=== PATIENT | female | born 1970 | race Caucasian/White ===

== ENCOUNTER 2024-08-30 08:41 | Outpatient (CLI) | payer SELFPAY | END 2024-08-30 08:42 | disposition home or self-care (01) | PROVIDERS: PCP Obstetrics & Gynecology; Visit Provider Family Medicine | DX: R07.81 Pleurodynia (principal) | CPT/HCPCS: 80053 ==

== ENCOUNTER 2024-08-30 09:39 | Inpatient (IN) | payer OTHER, SELFPAY ==
[2024-08-30] VITALS (25 sets, daily range): BP systolic 111–136; BP diastolic 60–79; PULSE 108–135; RESP 18–20; TEMP 36.8–38.8; O2SAT 91–97; BMI 21.6; BMI 22.1
--- NOTE | 2024-08-30 10:37 | CRLHL7_ITS ---
For Patients: As a result of the Century Cures Act, medical imaging exams and procedure reports are released immediately into your electronic medical record. You may view this report before your referring provider. If you have questions, please contact your health care provider. Indication: ABNORMAL CHEST XRAY, SHORTNESS OF BREATH, PAIN IN RIGHT SIDE OF CHEST AND BACK, PNEUMONIA Technique: CT chest without IV contrast Comparison: Same day chest radiograph Findings: No thyroid nodules. No pathologically enlarged lymph nodes throughout the thorax. The heart is normal in size. No significant pericardial effusion. The thoracic aorta and pulmonary artery are within normal limits in diameter. Large, likely loculated right-sided pleural effusion with adjacent compressive atelectatic changes of the right lung with near complete atelectasis of the right lower lobe and right middle lobes. Trace dependent and basilar linear atelectasis/scarring seen in the left lung. Solid 3 millimeter subpleural nodule in the left lower lobe, likely benign. The airways are clear. The visualized upper abdomen is unremarkable. The soft tissues and osseous structures are unremarkable. Impression: 1. Large, likely loculated right-sided pleural effusion with adjacent compressive atelectatic changes of the right lung. A superimposed infectious/inflammatory process in the atelectatic lung can not be excluded in the appropriate clinical context. 2. Solid 3 millimeter subpleural nodule in the left lower lobe, likely benign. If patient is at high risk for developing lung malignancy recommend repeat CT chest in 1 year. Please note that all CT scans at this facility use dose modulation, iterative reconstruction, and/or weight-based dosing when appropriate to reduce radiation dose to as low as reasonably achievable. Dictated by Agapito Mathews MD @ 08/30/2024 11:37:36 AM (Electronically Signed)
--- NOTE | 2024-08-30 10:56 | ED.GENADULT ---
HPI - General Adult General Chief complaint: Shortness of Breath/Dyspnea Stated complaint: Fluid in RT lung sent from clinic Time Seen by Provider: 08/30/24 09:41 History of Present Illness HPI narrative: This 53-year-old female comes in from clinic where was noted on x-ray that she has a large effusion in her right lung. She states that she began to have some pain in her ribs about a week ago. She went to a chiropractor on a couple different visits and was told that this was costal chondritis or pleuritic pain. She was prescribed meloxicam. Her pain is since worsened and today she arrives with tachycardia with a heart rate around 130 beats per minute. She also has a fever at 101? F. labs were acquired in her clinic visit and show a white count around 22,000. The patient is sent here for further evaluation treatment. Prior to this she has been in good health. Related Data Home Medications ?Medication ?Instructions ?Recorded ?Confirmed meloxicam 15 mg tablet 15 mg PO DAILY 08/30/24 08/30/24 Allergies Allergy/AdvReac Type Severity Reaction Status Date / Time No Known Drug Allergies Allergy Verified 08/30/24 08:06 Review of Systems Status of ROS: Reports: 10 or more systems reviewed and unremarkable except as noted in History and below Narrative: Constitutional: No weight gain or loss. Eyes: No discharge. No vision changes. HENT: No congestion, no sore throat, no ear pain. Cardiovascular: No palpitations. Respiratory: No shortness of breath, no wheezes. Occasional cough. Gastrointestinal: No abdominal pain, no vomiting, no diarrhea. Genitourinary: No dysuria, no hematuria. Musculoskeletal: Normal range of motion. Skin: No rashes, no pruritis. Neurological: No dizziness, weakness, sensory change, speech change. Endo/Heme/Allergies: No bruising or bleeding. No polydipsia. Pysch: no suicidality, no anxiety, no insomnia. All other systems reviewed and are negative. [facility] Medical History (Updated 08/30/24 @ 13:27 by Kobe Timmons MD) History of cervical dysplasia ?Z87.410 - Personal history of cervical dysplasia (ICD-10) History of gestational diabetes ?Z86.32 - Personal history of gestational diabetes (ICD-10) Surgical History (Updated 08/29/24 @ 16:31 by Lexi Trimble) History of tonsillectomy ?Z90.89 - Acquired absence of other organs (ICD-10) History of vaginal delivery History of section (07/09/06) ?Z98.891 - History of uterine scar from previous surgery (ICD-10) Family History (Updated 08/29/24 @ 16:31 by Lexi Trimble) Mother High cholesterol Breast cancer Alcohol dependence Father Prostate cancer Social History Smoking Status: Never smoker Do you use any of these nicotine containing products: None Second hand tobacco smoke exposure: No How often do you have a drink containing alcohol: never How often do you have six or more drinks on one occasion: Never AUDIT-C Alcohol total score: 0 Non-prescribed substance use: denies use service: No Exam Narrative: Exam Narrative: Constitutional: Well-developed, well-nourished, no acute distress. HEENT: Normocephalic, atraumatic. Neck: Normal range of motion. Nontender. Supple. Heart: Regular. No murmurs. Tachycardia. Intact distal pulses. Lungs: Absent lung sounds in the right lower lung. No use of accessory muscles for breathing. Abdomen: Normal bowel sounds. Nontender. No rebound tenderness. Genitalia: Deferred. Back: No midline tenderness. Normal range of motion. Extremities: Normal range of motion. No injury. Skin: Intact. No rash. Warm. No erythema or pallor. Neurologic: No altered sensation. No weakness. Alert and oriented. Psychiatric: No suicidality. No anxiety or depression. No insomnia. Nursing notes and vitals signs are reviewed. Const: Vital Signs, click to edit/add: Vital Signs - 24 hr 08/30/24 09:55 08/30/24 12:16 Temperature 101.2 F H 99.6 F Pulse Rate [Pulse Oximeter] 128 H Respiratory Rate 20 Blood Pressure [Ri ght Upper Arm] 136/79 Pulse Oximetry 96 Oxygen Delivery Me thod Room Air Course Vital Signs Vital signs: Initial Vital Signs Respiratory Effort Normal 08/30/24 09:43 Respiratory Depth Normal 08/30/24 09:43 Respiratory Pattern Normal 08/30/24 09:43 Vital Signs Temperature 101.2 F H 08/30/24 09:55 Pulse Rate 128 H 08/30/24 09:55 Respiratory Rate 20 08/30/24 09:55 Blood Pressure 136/79 08/30/24 09:55 Pulse Oximetry 96 08/30/24 09:55 Oxygen Delivery Method Room Air 08/30/24 09:55 Temperature 99.6 F 08/30/24 12:16 Pulse Rate 128 H 08/30/24 09:55 Respiratory Rate 20 08/30/24 09:55 Blood Pressure 136/79 08/30/24 09:55 Pulse Oximetry 96 08/30/24 09:55 Oxygen Delivery Method Room Air 08/30/24 09:55 Medications Administered Medications: Discontinued Medications Generic Name Dose Route Start Last Admin Trade Name Gonzalo PRN Reason Stop Dose Admin Acetaminophen 1,000 mg 08/30/24 10:37 08/30/24 11:24 Acetaminophen 500 Mg Tablet PO 08/30/24 10:38 1,000 mg ONCE ONE Administration Hydromorphone HCl 0.5 mg 08/30/24 12:15 08/30/24 13:12 Hydromorphone 0.5 Mg/0.5 Ml Inj IVP 08/30/24 12:16 0.5 mg ONCE ONE Administration Sodium Chloride 500 mls @ 500 mls/hr 08/30/24 10:37 08/30/24 11:24 0.9 % Sodium Chloride 500 Ml IV 08/30/24 11:36 500 mls/hr .Q1H ONE Administration Piperacillin Sod/Tazobactam 100 mls @ 200 mls/hr 08/30/24 10:37 08/30/24 11:24 Sod 3.375 gm/ Sodium Chloride IVPB 08/30/24 10:38 200 mls/hr ONCE ONE Administration Medical Decision Making [facility] Narrative Medical decision making narrative: This patient was sent here from clinic after discovery of a right-sided pleural effusion. The patient has been having symptoms for about a week and did not know that she had an ammonia. The labs were acquired at the clinic and showed a white count of around 22,000. An EKG done there showed sinus tachycardia without any ST or T-wave abnormalities. The patient arrives here with heart rate around 130 beats per minute but is not using accessory muscles for breathing and otherwise has reassuring vital signs. She did have a temperature of a 101.2? F. The patient received Tylenol orally. An IV was established where labs are acquired including blood culture and lactate. Her lactate returned normal at 1.2. After the blood cultures obtained the patient received a dose of Zosyn. CT scan of the chest was obtained and shows no obvious empyema or other findings beyond the large effusion in the right lung. This patient's symptoms are likely all related to a pneumonia. I did speak with the hospitalist on-call who wanted me to also speak with the surgeon on-call in case her was in need for thoracentesis. I did speak with Dr. Avilez in this regard. Dr. Barone accepts this patient for ongoing management. Lab Data Labs: Lab Results 08/30/24 Range/Units 10:58 Lactate 1.2 (0.5-1.9) mmol/L Imaging Data CT scan - chest: Radiologist's impression: 1. Large, likely loculated right-sided pleural effusion with adjacent compressive atelectatic changes of the right lung. A superimposed infectious/inflammatory process in the atelectatic lung can not be excluded in the appropriate clinical context. 2. Solid 3 millimeter subpleural nodule in the left lower lobe, likely benign. If patient is at high risk for developing lung malignancy recommend repeat CT chest in 1 year. Discharge Plan Discharge Clinical Impression: Community acquired pneumonia, Rib pain on right side Patient Disposition: Admitted As Observation Condition: Unchanged Prescriptions: No Action meloxicam 15 mg tablet 15 mg PO DAILY Follow Up/Referrals: Rachel Hernandez MD [Primary Care Provider] -
[2024-08-30 11:01] LABS: Lactate* 1.2 mmol/L (0.5-1.9)
[2024-08-30] MEDS: PIPERACILLIN/TAZOBACTAM 3.375 GM in 0.9 % SODIUM CHLORIDE Mini-bag 100 ML IVPB ×3 (11:24→22:36)
[2024-08-30] MEDS: 0.9 % SODIUM CHLORIDE 500 ML 500 ML IV (11:24)
[2024-08-30] MEDS: ACETAMINOPHEN 500 MG TABLET 1000 MG PO (11:24)
[2024-08-30] MEDS: HYDROmorphone 0.5 mg/0.5 ml inj IVP (13:12)
--- NOTE | 2024-08-30 14:53 | CRLHL7_ITS ---
For Patients: As a result of the Cures Act, medical imaging exams and procedure reports are released immediately into your electronic medical record. You may view this report before your referring provider. If you have questions, please contact your health care provider. Indication: Post thoracentesis Technique: AP view of the chest. Comparison: 08/30/2024. Findings: Normal cardiomediastinal silhouette. Slight interval decrease in now moderate right pleural effusion without visualized pneumothorax. Right basilar opacity. Impression: Slight interval decrease in now moderate right pleural effusion without visualized pneumothorax. Dictated by Jose Cruz Dasilva MD @ 08/30/2024 6:27:43 PM (Electronically Signed)
[2024-08-30 17:11] LABS: HCG Qualitative Serum* Negative (Negative)
[2024-08-30 17:17] LABS: Lipase* 78 U/L (23-300)
--- NOTE | 2024-08-30 18:13 | P.IMHP_ITS ---
Hospitalist- H&P: HPI History of Present Illness Date Seen: 08/30/24 Chief complaint: Fluid in RT lung sent from clinic Narrative: Raysa Stanley is a 53 year old female admitted through the emergency department with a one-week history of fever, right chest pain, dyspnea. Patient reports she was in her usual state of good health until about 1 week ago. At that time she had onset of a fever. She felt fatigue and malaise and noted that it was hurting on the right side of her chest. It hurt to breathe. She saw chiropractor for couple visits and this was of no benefit. It this weekend she noted that she had heart rate up into the 120s and her oxygen saturations were in the low 90s at home. It would hurt on her right side of her chest when she took a deep breath. She reported ongoing fevers through the weekend. She did take meloxicam for her pleuritic chest pain. Also acetaminophen. She tells me the maximum amount of acetaminophen that she took in a day was 1000 mg every 6 hours. She has had a poor appetite and has not been eating well. She was found to have a large right pleural effusion on CT of her chest. That right lung was atelectatic and possibly with pneumonia. She was also found to have elevated transaminases. She denies any previous history of lung disease, heart disease, liver disease. She drinks alcohol about once a month. She has not had any significant gastrointestinal symptoms except for her loss of appetite in the last week. No previous history of jaundice. She takes no chronic medications. She has no previous history of malignancy. Review of Systems Narrative: She reports no other medical problems, surgeries, hospitalizations. No history of recent travel. No recent exposures. She does have a longstanding history of anxiety. Patient indicates that she may be tab-menopausal. Menstrual periods have been more irregular and spaced out. [facility] Medical History (Updated 08/30/24 @ 19:02 by Omar Crisostomo MD) Anxiety ?F41.9 - Anxiety disorder, unspecified (ICD-10) History of cervical dysplasia ?Z87.410 - Personal history of cervical dysplasia (ICD-10) History of gestational diabetes ?Z86.32 - Personal history of gestational diabetes (ICD-10) Surgical History (Updated 08/29/24 @ 16:31 by Lexi Trimble) History of tonsillectomy ?Z90.89 - Acquired absence of other organs (ICD-10) History of vaginal delivery History of section (07/09/06) ?Z98.891 - History of uterine scar from previous surgery (ICD-10) Family History (Updated 08/29/24 @ 16:31 by Lexi Trimble) Mother High cholesterol Breast cancer Alcohol dependence Father Prostate cancer Social History (Updated 08/30/24 @ 18:58 by Omar Crisostomo MD) Narrative: She lives with her in [place]. She has 5 children aged 11-26. Some at home. She also lives with her 82-year-old mother. She does not smoke. She drinks alcohol about once a month. Code status is full. is healthcare power of assistant city attorney. What is your current living situation?: I presently have a place to live Problems where you live: no known problems Problems where you live details: na In the past 12 months, utilities in danger of being shut off: no In past 12 months, lack of transportation kept you from medical appts, meetings, work, or getting things needed for daily living: no In the past 12 mos, have been you worried that your food would run out before you had money to buy more?: never true In the past 12 mos, the food you bought just didn't last and you didn't have money to buy more?: never true Highest level of school completed/degree received: Bachelor's degree Smoking Status: Never smoker Do you use any of these nicotine containing products: None Second hand tobacco smoke exposure: No How often do you have a drink containing alcohol: monthly or less How often do you have six or more drinks on one occasion: Never AUDIT-C Alcohol total score: 1 Non-prescribed substance use: denies use Caffeine: Yes How often does anyone, including family, friends and others, physically hurt you : never How often does anyone, including family, friends and others, insult or talk down to you: never How often does anyone, including family, friends and others, threaten you with harm: never How often does anyone, including family, friends and others, scream or curse at you: never service: No Meds Home Medications and Allergies Home Medications ?Medication ?Instructions ?Recorded ?Confirmed ?Type meloxicam 15 mg tablet 15 mg PO DAILY 08/30/24 08/30/24 History Home Medication Comments: She has been taking p.r.n. acetaminophen up to but not exceeding 1000 mg q.6 domonique rs. Meloxicam was prescribed 3 days ago. No chronic medications. Allergies Allergy/AdvReac Type Severity Reaction Status Date / Time No Known Drug Allergies Allergy Verified 08/30/24 08:06 Exam Narrative: Exam Narrative: She is alert and appears in no distress. Eyes normal. Oropharynx normal. Neck is supple without mass or adenopathy. Respirations: Breath sounds are clear on the left side anteriorly and posteriorly on the right she has marked diminished breath sounds in the lower lung richey. Dullness to percussion. Cardiovascular: S1, S2, regular tachycardia. Abdomen: Bowel sounds are active. Abdomen is soft without tenderness or mass. I do not palpate a liver edge. No other mass. Extremities with intact pulses. No edema. No jaundice. Const: Vital Signs, click to edit/add: Vital Signs - 24 hr 08/30/24 09:55 08/30/24 10:09 08/30/24 10:15 Temperature 101.2 F H Pulse Rate 129 H 127 H Pulse Rate [Pulse Oximeter] 128 H Respiratory Rate 20 Blood Pressure [Ri ght Arm] Blood Pressure [Ri ght Upper Arm] 136/79 Pulse Oximetry 96 95 94 Oxygen Delivery Me thod Room Air 08/30/24 10:30 08/30/24 10:45 08/30/24 11:29 Temperature Pulse Rate 126 H 135 H 125 H Pulse Rate [Pulse Oximeter] Respiratory Rate Blood Pressure [Ri ght Arm] Blood Pressure [Ri ght Upper Arm] Pulse Oximetry 94 93 95 Oxygen Delivery Me thod 08/30/24 11:30 08/30/24 11:45 08/30/24 12:00 Temperature Pulse Rate 125 H 125 H 131 H Pulse Rate [Pulse Oximeter] Respiratory Rate Blood Pressure [Ri ght Arm] Blood Pressure [Ri ght Upper Arm] Pulse Oximetry 95 93 93 Oxygen Delivery Me thod 08/30/24 12:15 08/30/24 12:16 08/30/24 12:30 Temperature 99.6 F Pulse Rate 123 H 124 H Pulse Rate [Pulse Oximeter] Respiratory Rate Blood Pressure [Ri ght Arm] Blood Pressure [Ri ght Upper Arm] Pulse Oximetry 93 91 Oxygen Delivery Me thod 08/30/24 12:45 08/30/24 13:09 08/30/24 13:15 Temperature Pulse Rate 118 H 121 H 116 H Pulse Rate [Pulse Oximeter] Respiratory Rate Blood Pressure [Ri ght Arm] Blood Pressure [Ri ght Upper Arm] Pulse Oximetry 92 94 94 Oxygen Delivery Me thod 08/30/24 13:30 08/30/24 13:45 08/30/24 14:00 Temperature 99.1 F Pulse Rate 108 H 111 H Pulse Rate [Pulse Oximeter] 118 H Respiratory Rate 18 Blood Pressure [Ri ght Arm] 123/72 Blood Pressure [Ri ght Upper Arm] Pulse Oximetry 92 92 93 Oxygen Delivery Me thod Room Air 08/30/24 14:28 Temperature Pulse Rate Pulse Rate [Pulse Oximeter] Respiratory Rate 18 Blood Pressure [Ri ght Arm] Blood Pressure [Ri ght Upper Arm] Pulse Oximetry 93 Oxygen Delivery Me thod Room Air Documenting provider has reviewed patient's vital signs: yes Hospitalist - H&P: Result Imaging CT scan - chest: Radiologist's impression: Indication: ABNORMAL CHEST XRAY, SHORTNESS OF BREATH, PAIN IN RIGHT SIDE OF CHEST AND BACK, PNEUMONIA Technique: CT chest without IV contrast Comparison: Same day chest radiograph Findings: No thyroid nodules. No pathologically enlarged lymph nodes throughout the thorax. The heart is normal in size. No significant pericardial effusion. The thoracic aorta and pulmonary artery are within normal limits in diameter. Large, likely loculated right-sided pleural effusion with adjacent compressive atelectatic changes of the right lung with near complete atelectasis of the right lower lobe and right middle lobes. Trace dependent and basilar linear atelectasis/scarring seen in the left lung. Solid 3 millimeter subpleural nodule in the left lower lobe, likely benign. The airways are clear. The visualized upper abdomen is unremarkable. The soft tissues and osseous structures are unremarkable. Impression: 1. Large, likely loculated right-sided pleural effusion with adjacent compressive atelectatic changes of the right lung. A superimposed infectious/inflammatory process in the atelectatic lung can not be excluded in the appropriate clinical context. 2. Solid 3 millimeter subpleural nodule in the left lower lobe, likely benign. If patient is at high risk for developing lung malignancy recommend repeat CT chest in 1 year. Assessment and Plan Assessment and plan (1) Empyema of right pleural space: Problem comment: Loculated large effusion on the right. Thoracentesis shows xanthochromic cloudy fluid with 11,556 white cells and 300 red blood cells. 650 mL removed with large pleural effusion remaining. Status: Acute Plan Patient was admitted for evaluation management of febrile illness with large p leural effusion and abnormal liver enzymes. Cause for this is uncertain. Thoracentesis showing probable empyema. Patient would benefit for transfer for specialty care including possible VATS and Infectious Disease consult. Pending transfer to [facility] Total Time Spent Total Time Spent: Total time spent today is 90 minutes in coordination of care and discussing with patient, and other providers ongoing evaluation management of pleural effusion
[2024-08-30 18:21] LABS: Mononuclear WBC Body Fluid* 21 %; Polynuclear WBC Body Fluid* 79 %; RBC, Body Fluid* 3000 Cells/uL; WBC, Body Fluid* 11556 Cells/uL
--- NOTE | 2024-08-30 18:21 | PM.GSCN ---
History of Present Illness Consult details Date Seen: 08/30/24 Consult date: 08/30/24 Narrative: Patient presented to the emergency department with right-sided chest pain with deep breaths and some shortness of breath. There is pain started about a week ago. She initially saw her chiropractor, who recommended an anti-inflammatory. Despite taking the recommended medication she continued to have pain that was getting worse and she developed fevers (102F). She has never had pain like this before. She does get slightly short of breath with moving around. She does have a history of pneumonia several years ago that was on the left side per the patient. She said she is otherwise healthy and does not take any medications on regular basis. She does take some supplements (vitamin-C, vitamin-D, probiotic). She is a nonsmoker. Review of Systems Status of ROS: Reports: 10 or more systems reviewed and unremarkable except as noted in History and below [facility] Medical History (Updated 08/30/24 @ 18:26 by Samira Avilez MD) History of cervical dysplasia ?Z87.410 - Personal history of cervical dysplasia (ICD-10) History of gestational diabetes ?Z86.32 - Personal history of gestational diabetes (ICD-10) Surgical History (Updated 08/29/24 @ 16:31 by Lexi Trimble) History of tonsillectomy ?Z90.89 - Acquired absence of other organs (ICD-10) History of vaginal delivery History of section (07/09/06) ?Z98.891 - History of uterine scar from previous surgery (ICD-10) Family History (Updated 08/29/24 @ 16:31 by Lexi Trimble) Mother High cholesterol Breast cancer Alcohol dependence Father Prostate cancer Social History What is your current living situation?: I presently have a place to live Problems where you live: no known problems Problems where you live details: na In the past 12 months, utilities in danger of being shut off: no In past 12 months, lack of transportation kept you from medical appts, meetings, work, or getting things needed for daily living: no In the past 12 mos, have been you worried that your food would run out before you had money to buy more?: never true In the past 12 mos, the food you bought just didn't last and you didn't have money to buy more?: never true Highest level of school completed/degree received: Bachelor's degree Smoking Status: Never smoker Do you use any of these nicotine containing products: None Second hand tobacco smoke exposure: No How often do you have a drink containing alcohol: monthly or less How often do you have six or more drinks on one occasion: Never AUDIT-C Alcohol total score: 1 Non-prescribed substance use: denies use Caffeine: Yes How often does anyone, including family, friends and others, physically hurt you: never How often does anyone, including family, friends and others, insult or talk down to you: never How often does anyone, including family, friends and others, threaten you with harm: never How often does anyone, including family, friends and others, scream or curse at you: never service: No Meds Home Medications and Allergies Home Medications ?Medication ?Instructions ?Recorded ?Confirmed ?Type meloxicam 15 mg tablet 15 mg PO DAILY 08/30/24 08/30/24 History Allergies Allergy/AdvReac Type Severity Reaction Status Date / Time No Known Drug Allergies Allergy Verified 08/30/24 08:06 Exam Narrative: Exam Narrative: General: Alert oriented, nontoxic in appearance. Respiratory: With the liver decreased breath sounds on the right side, equal breath rise maintained on room air CV: Tachycardic, well perfused Const: Vital Signs, click to edit/add: Vital Signs - 24 hr 08/30/24 09:55 08/30/24 10:09 08/30/24 10:15 Temperature 101.2 F H Pulse Rate 129 H 127 H Pulse Rate [Pulse Oximeter] 128 H Respiratory Rate 20 Blood Pressure [Ri ght Arm] Blood Pressure [Ri ght Upper Arm] 136/79 Pulse Oximetry 96 95 94 Oxygen Delivery Me thod Room Air 08/30/24 10:30 08/30/24 10:45 08/30/24 11:29 Temperature Pulse Rate 126 H 135 H 125 H Pulse Rate [Pulse Oximeter] Respiratory Rate Blood Pressure [Ri ght Arm] Blood Pressure [Ri ght Upper Arm] Pulse Oximetry 94 93 95 Oxygen Delivery Me thod 08/30/24 11:30 08/30/24 11:45 08/30/24 12:00 Temperature Pulse Rate 125 H 125 H 131 H Pulse Rate [Pulse Oximeter] Respiratory Rate Blood Pressure [Ri ght Arm] Blood Pressure [Ri ght Upper Arm] Pulse Oximetry 95 93 93 Oxygen Delivery Me thod 08/30/24 12:15 08/30/24 12:16 08/30/24 12:30 Temperature 99.6 F Pulse Rate 123 H 124 H Pulse Rate [Pulse Oximeter] Respiratory Rate Blood Pressure [Ri ght Arm] Blood Pressure [Ri ght Upper Arm] Pulse Oximetry 93 91 Oxygen Delivery Me thod 08/30/24 12:45 08/30/24 13:09 08/30/24 13:15 Temperature Pulse Rate 118 H 121 H 116 H Pulse Rate [Pulse Oximeter] Respiratory Rate Blood Pressure [Ri ght Arm] Blood Pressure [Ri ght Upper Arm] Pulse Oximetry 92 94 94 Oxygen Delivery Me thod 08/30/24 13:30 08/30/24 13:45 08/30/24 14:00 Temperature 99.1 F Pulse Rate 108 H 111 H Pulse Rate [Pulse Oximeter] 118 H Respiratory Rate 18 Blood Pressure [Ri ght Arm] 123/72 Blood Pressure [Ri ght Upper Arm] Pulse Oximetry 92 92 93 Oxygen Delivery Me thod Room Air 08/30/24 14:28 Temperature Pulse Rate Pulse Rate [Pulse Oximeter] Respiratory Rate 18 Blood Pressure [Ri ght Arm] Blood Pressure [Ri ght Upper Arm] Pulse Oximetry 93 Oxygen Delivery Me thod Room Air Results Labs Labs: Leukocytosis (22), some hyponatremia (130), elevated transaminases and alkaline phosphatase. Imaging Chest x-ray: report reviewed and image reviewed CT scan - chest: report reviewed and image reviewed General Surgery Procedures Thoracentesis Time Out Performed: Yes Imaging guidance used ?: Yes Indication: Pleural effusion Procedure: therapeutic thoracentesis and diagnostic thoracentesis Location: right Local anesthetic used: lidocaine Amount of anesthesia used (mL): 7 Bedside ultrasound used: yes, fluid confirmed and location marked Preparation: sterile prep and drape and 11 blade used to make omar in skin Amount of fluid obtained (mL): 650 Fluid: other (Murky yellow fluid) Post Procedure Exam: awake, alert, normal BP, normal HR and normal SpO2 Patient Tolerated Procedure: well and no complications Complications: none Progress Note:A&P Assessment and plan (1) Empyema of right pleural space: Status: Acute Plan Patient is a 53-year-old female with a one-week history of right-sided chest pain, fever and shortness of breath with movement. Workup was obtained in the emergency department with chest x-ray demonstrating a large right pleural effusion and labs showing an elevated WBC concerning for empyema. A chest CT was obtained which showed a large amount of fluid, possible loculations and adjacent atelectasis. Given the size of the fluid I was asked to evaluate her for a diagnostic and therapeutic thoracentesis. Risks and benefits of thoracentesis were discussed at length with the patient. Risks included, but were not limited to: Bleeding, risk of damage to surrounding structures and possible need for additional procedures. I did review with the patient that the CT scan showed some thicker fluid and loculations, which may not be amendable to drainage with a small catheter. All questions and concerns were addressed with patient agreeing to proceed. Patient underwent a right-sided thoracentesis, ultrasound guidance. Procedure was tolerated well. 650 mL of cloudy yellow tinged fluid was removed, concerning for empyema. I was unable to pull any additional fluid with ultrasound demonstrating persistent thick fluid and loculations. An immediate chest x-ray shows a large pleural effusion, no pneumothorax. Given these findings I am recommending further evaluation by thoracic surgery.
[2024-08-30 18:29] LABS: BF Clarity* Cloudy; BF Color Xanthochromic; BF Total Volume* 110; pH Body Fluid* 7.5
[2024-08-30] MEDS: ACETAMINOPHEN 325 MG TABLET 650 MG PO (18:48)
--- NOTE | 2024-08-30 19:05 | PM.DS1 ---
DS: Providers Provider Date Seen: 08/30/24 Date of admission: 08/30/24 15:48 Primary care physician: Rachel Hernandez MD Admitting Clinician: Jackelyn Barone MD Attending Physician on discharge: Jackelyn Barone MD Date of Discharge: 08/30/24 DS: Diagnosis Discharge Diagnosis (1) Empyema of right pleural space: Status: Acute Problem details: Loculated large effusion on the right. Thoracentesis shows xanthochromic cloudy fluid with 11,556 white cells and 300 red blood cells. 650 mL removed with large pleural effusion remaining. DS: Summary Hospital Course Hospital Course: 53-year-old female admitted with a 1 week history of fever, pleuritic right chest pain, fatigue, malaise and anorexia. Found to have a large loculated right pleural effusion. Had thoracentesis performed of 650 mL of cloudy fluid. Suspected to be an empyema. Patient is clinically stable but recommended to undergo further evaluation with possible VATS and Infectious Disease consult. Transfer to [facility] for ongoing evaluation and management Status at Discharge Functional status at discharge: independent ambulation Time Spent with Patient Time attestation: Total time spent providing and/or coordinating discharge services: Exam Narrative: Exam Narrative: See admission note Const: Vital Signs, click to edit/add: Vital Signs - 24 hr 08/30/24 09:55 08/30/24 10:09 08/30/24 10:15 Temperature 101.2 F H Pulse Rate 129 H 127 H Pulse Rate [Pulse Oximeter] 128 H Respiratory Rate 20 Blood Pressure [Ri ght Arm] Blood Pressure [Ri ght Upper Arm] 136/79 Pulse Oximetry 96 95 94 Oxygen Delivery Me thod Room Air 08/30/24 10:30 08/30/24 10:45 08/30/24 11:29 Temperature Pulse Rate 126 H 135 H 125 H Pulse Rate [Pulse Oximeter] Respiratory Rate Blood Pressure [Ri ght Arm] Blood Pressure [Ri ght Upper Arm] Pulse Oximetry 94 93 95 Oxygen Delivery Me thod 08/30/24 11:30 08/30/24 11:45 08/30/24 12:00 Temperature Pulse Rate 125 H 125 H 131 H Pulse Rate [Pulse Oximeter] Respiratory Rate Blood Pressure [Ri ght Arm] Blood Pressure [Ri ght Upper Arm] Pulse Oximetry 95 93 93 Oxygen Delivery Me thod 08/30/24 12:15 08/30/24 12:16 08/30/24 12:30 Temperature 99.6 F Pulse Rate 123 H 124 H Pulse Rate [Pulse Oximeter] Respiratory Rate Blood Pressure [Ri ght Arm] Blood Pressure [Ri ght Upper Arm] Pulse Oximetry 93 91 Oxygen Delivery Me thod 08/30/24 12:45 08/30/24 13:09 08/30/24 13:15 Temperature Pulse Rate 118 H 121 H 116 H Pulse Rate [Pulse Oximeter] Respiratory Rate Blood Pressure [Ri ght Arm] Blood Pressure [Ri ght Upper Arm] Pulse Oximetry 92 94 94 Oxygen Delivery Me thod 08/30/24 13:30 08/30/24 13:45 08/30/24 14:00 Temperature 99.1 F Pulse Rate 108 H 111 H Pulse Rate [Pulse Oximeter] 118 H Respiratory Rate 18 Blood Pressure [Ri ght Arm] 123/72 Blood Pressure [Ri ght Upper Arm] Pulse Oximetry 92 92 93 Oxygen Delivery Me thod Room Air 08/30/24 14:28 Temperature Pulse Rate Pulse Rate [Pulse Oximeter] Respiratory Rate 18 Blood Pressure [Ri ght Arm] Blood Pressure [Ri ght Upper Arm] Pulse Oximetry 93 Oxygen Delivery Me thod Room Air Documenting provider has reviewed patient's vital signs: yes DS: Data Data Completed and Pending Labs on day of discharge: Labs from last 24 hours 08/30/24 08/30/24 08/30/24 18:20 18:10 16:56 Lactate Lipase HCG, Qual Fluid Volume 110 Pending Fluid Color Xanthochromic A Pending Fluid Appearance Cloudy A Pending Fluid pH 7.5 Pending Fluid WBC 64236 Pending Fluid RBC 3000 Pending Fluid Polynuclear WBCs 79 Pending Fluid Mononuclear WBCs 21 Pending Fluid Glucose Pending Pending Fluid Total Protein Pending Pending Fluid Albumin Pending Pending Fluid LDH Pending Pending Fluid Amylase Pending Fluid Cholesterol Pending Pending Cytology Interpretat Pending Lab Acknowledgement Test Added 08/30/24 10:58 Lactate 1.2 Lipase 78 HCG, Qual Negative Fluid Volume Fluid Color Fluid Appearance Fluid pH Fluid WBC Fluid RBC Fluid Polynuclear WBCs Fluid Mononuclear WBCs Fluid Glucose Fluid Total Protein Fluid Albumin Fluid LDH Fluid Amylase Fluid Cholesterol Cytology Interpretat Lab Acknowledgement Preliminary micro results at discharge 08/30/24 18:10 Anaerobic Culture - Preliminary Pleural Fluid Culture in Progress Body Fluid Culture - Preliminary Culture in Progress Imaging CT scan - chest: Radiologist's impression: Indication: ABNORMAL CHEST XRAY, SHORTNESS OF BREATH, PAIN IN RIGHT SIDE OF CHEST AND BACK, PNEUMONIA Technique: CT chest without IV contrast Comparison: Same day chest radiograph Findings: No thyroid nodules. No pathologically enlarged lymph nodes throughout the thorax. The heart is normal in size. No significant pericardial effusion. The thoracic aorta and pulmonary artery are within normal limits in diameter. Large, likely loculated right-sided pleural effusion with adjacent compressive atelectatic changes of the right lung with near complete atelectasis of the right lower lobe and right middle lobes. Trace dependent and basilar linear atelectasis/scarring seen in the left lung. Solid 3 millimeter subpleural nodule in the left lower lobe, likely benign. The airways are clear. The visualized upper abdomen is unremarkable. The soft tissues and osseous structures are unremarkable. Impression: 1. Large, likely loculated right-sided pleural effusion with adjacent compressive atelectatic changes of the right lung. A superimposed infectious/inflammatory process in the atelectatic lung can not be excluded in the appropriate clinical context. 2. Solid 3 millimeter subpleural nodule in the left lower lobe, likely benign. If patient is at high risk for developing lung malignancy recommend repeat CT chest in 1 year. Discharge Plan Discharge Disposition: [facility] Date of Admission: 08/30/24 15:48 Attending Provider on Discharge: Omar Crisostomo Primary Care Provider: Rachel Hernandez Condition: Unchanged Discharge Orders: Transfer of Care to Other Hospital (ORDER); Ordered 08/30/24 Ordered By: Omar Crisostomo Oxygen: No
[2024-08-30 19:07] LABS: Albumin Body Fluid* 2.5 gm/dL; Amylase Body Fluid* 39 U/L; Body Fluid Total Protein* 4.3 gm/dL; Cholesterol Body Fluid* 71 mg/dL; Glucose Body Fluid* < 20 mg/dL; LDH Body Fluid* 276 U/L
--- NOTE | 2024-08-30 20:22 | PC.NURSE ---
Pt arrived to floor around 1500, alert oriented and vitally stable, though fever present (101.1), pt had prn tylenol. Pt appears anxious and verbalizes concern. Pt had thoracentesis done at bedside per Dr. Avilez, tolerated well. Pt up independently in room, tolerates well. Pt on regular diet and tolerates well. Family at bedside.
[2024-08-30] MEDS: MORPHINE 2 MG/ML inj IVP (21:59)
[2024-08-30] MEDS: SODIUM CHLORIDE 0.9 % (FLUSH) 10 ML SYRINGE 5 ML IVF (22:36)
--- NOTE | 2024-08-30 23:36 | PC.NURSE ---
SHIFT NOTE 19-23: Pt pleasant, A&O. Initial temp 101.9F, recheck 98.3F. Sinus tach on tele, 110-120. >90% oxygen saturation on RA. PRN Morphine given x1 for pain with pt reporting relief. Pt up independently, took a shower. Denies N/V. Transferring to [facility] when EMS is ready, consent signed. Nurse to nurse report given to Marcelle.
--- NOTE | 2024-08-31 02:00 | PC.NURSE ---
Shift 2300- EMS arrived to transport Pt at 2320. Report given to EMS.
== END 2024-08-30 23:20 | disposition short-term general hospital (02) | DRG 178 ==
LOC: ED 13:27 → MEDSURG 13:58
PROVIDERS: Surgery; Admitting Provider Family Medicine; Emergency Provider Emergency Medicine Emergency Medical Services; PCP Obstetrics & Gynecology; Visit Provider Family Medicine
DX: J86.9 Pyothorax without fistula (principal); J90 Pleural effusion, not elsewhere classified; J98.11 Atelectasis; R50.9 Fever, unspecified; R91.1 Solitary pulmonary nodule; F41.9 Anxiety disorder, unspecified; Z86.32 Personal history of gestational diabetes; R00.0 Tachycardia, unspecified
CPT/HCPCS: 32555; 36415; 71045; 71250; 81003; 82042; 82150; 82945; 83605; 83615; 83690; 83986; 84157; 84311; 84703; 87015; 87040; 87070; 87075; 87102; 87116; 87186; 87205; 88112; 88305; 89051; 93005; 99285; A9270; J1171; J2270; J2543; J7030

== ENCOUNTER 2024-08-30 23:22 | Outpatient (CLI) | payer OTHER, SELFPAY ==
--- OUTSIDE RECORDS SUMMARY | 2024-09-15 15:25 | XMS_ITS | Clinical Summary ---
Author Organization [employer] Address [place], [place] [address] Care Team Providers Care Scheduling Coordinator Name Role Phone JaneJuliette euceda Primary Care Provider [phone] Allergies No known active allergies Medications Medication Sig Dispensed Refills Start Date End Date Status calcium carbonate-vitam in D3, 500 mg-400 units, (OSCAL 500 + D) tablet Take 1 tablet by mouth 2 times daily before meals. 0 08/22/2019 Active amoxicillin 500 mg capsuleIndicati ons:Pleural effusion, right,Empyema lung (HC),Pneumococc al bacteremia Take 2 Capsules (1,000 mg) by mouth two times daily. 136 Capsule 09/06/2024 Active acetaminophen (TYLENOL EXTRA STRGTH) 500 mg tabletIndicatio ns:Pleural effusion, right Take 2 Tablets (1,000 mg) by mouth every 6 hours if needed for Pain. Max acetaminophen dose: 4000mg in 24 hrs. 09/05/2024 Active ibuprofen (ADVIL; MOTRIN) 600 mg tabletIndicatio ns:Pleural effusion, right Take 1 Tablet (600 mg) by mouth four times daily with meals and at bedtime. Maximum of 3200 mg in 24 hours. 09/05/2024 Active hydrOXYzine pamoate (VISTARIL) 25 mg capsuleIndicati ons:Anxiety state Take 1-2 Capsules (25-50 mg) by mouth 3 times daily if needed for Anxiety. 20 Capsule 1 09/08/2024 Active gabapentin (NEURONTIN) 100 mg capsuleIndicati ons:Pleural effusion, right Take 1 Capsule (100 mg) by mouth three times daily. 90 Capsule 09/08/2024 Active Taurine 1,000 mg cap Take 1 capsule by mouth once daily. 0 08/22/2019 4 Discontinue d(*IP Discontinue d) gabapentin (NEURONTIN) 100 mg capsuleIndicati ons:Pleural effusion, right Take 1 Capsule (100 mg) by mouth three times daily. 90 Capsule 09/05/2024 4 Discontinue d(Reorder (E-cancel not sent)) hydrOXYzine pamoate (VISTARIL) 25 mg capsuleIndicati ons:Anxiety state Take 1 Capsule (25 mg) by mouth 3 times daily if needed for Anxiety. 10 Capsule 09/05/2024 4 Discontinue d(Reorder (E-cancel not sent)) fluconazole (DIFLUCAN) 150 mg tabletIndicatio ns:Vaginal yeast infection Take 1 Tablet (150 mg) by mouth one time for 1 dose. 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 Fever and chills 08/31/2024 Leukocytosis 08/31/2024 Loculated pleural effusion 08/31/2024 Degeneration of lumbar or lumbosacral interverte bral disc 09/19/2011 Anxiety state, unspecified 01/20/2008 Encounters Date Type Department Care Team Description 09/14/2024 Telephone [facility] [address] [place] [address] Thalia Matt PA Questions 09/13/2024 3:30 PM CDT Office Visit [facility] [address] [place] [address] Thalia Matt PA Post-op 09/13/2024 3:00 PM CDT - 09/13/2024 11:59 PM CDT Hospital Encounter [facility] [address] [place] [address] Maliha Wilson PA Pleural effusion, right 09/13/2024 Travel 09/09/2024 Telephone [facility] [address] [place] [address] Kaushik Jones MD Concerns; Medication Management 09/08/2024 8:45 AM CDT Office Visit [facility] [address] [place] [address] Juliette Lara, DO Hospital F/U (DISCHARGED 09/05/24 [facility] EMPYEMA OF RT LUNG ) 09/08/2024 Travel 09/06/2024 Telephone [facility] [address] [place] [phone] Marilyn George, mechanical drafter Followup 09/06/2024 Patient Outreach [facility] [address] [place] [address] Jennifer Biggs, RN Primary RN Care Management; Hospital F/U (LACE 50) 09/01/2024 11:14 AM CDT Anesthesia Event [facility] [address] [place] [address] Thuy Roth MD Bedard, Kayla J, POULTRY CLEANER Student 09/01/2024 10:40 AM CDT - 09/01/2024 1:37 PM CDT Surgery [facility] [address] [place] [address] Ranulfo Mackay MD FLEXIBLE BRONCHOSCOPY, 08/31/2024 12:29 AM CDT - 09/05/2024 6:11 PM CDT Hospital Encounter [facility] [address] [place] [address] [facility], [facility] Donald MD Desautels, Lizzy Banerjee MD Pleural effusion, right (Primary Dx); Anxiety state, unspecified; Empyema lung (HC); Pneumococcal bacteremia Discharge Disposition: Home Self Care 08/31/2024 Travel 08/31/2024 Lab Requisition [facility] [phone] Samira Avilez MD 08/31/2024 Lab Requisition [facility] [phone] Samira Avilez MD from Last 3 Months Immunizations Name Administration Dates Next Due Hepatitis A, Unspecified 04/14/1996,04/14/1995 MMR 11/18/1997 Td, Preservative Free (age >= 7 Years) 5 Yellow Fever 11/18/1997 Family History Medical History Relation Name Comments Psychiatric illness Brother bipolar Psychiatric illness Father bipolar Psychiatric illness Maternal Aunt anxiety Psychiatric illness Maternal Uncle 1 anxi ety Psychiatric illness Maternal Uncle 2 anxi ety Psychiatric illness Maternal Uncle 3 anxi ety Psychiatric illness Mother anxiety Relation Name Status Comments Brother Father Maternal Aunt Maternal Uncle 1 Maternal Uncle 2 Maternal Uncle 3 Mother Social History Tobacco Use Types Packs/Day Years Used Date Smoking Tobacco: Never Passive Smoke Exposure: Past Smokeless Tobacco: Never Tobacco Cessation:Counseling Given: Not Answered Alcohol Use Standard Drinks/Week Comments Not Currently 0 (1 standard drink = 0.6 oz pur e alcohol) occasionally PHQ-2 Answer Date Recorded PHQ-2 Score 4 08/22/2019 Social Connections Answer Date Recorded Do you often feel lonely or isolated from those around you? 0 08/31/2024 Financial Resource Strain Answer Date R ecorded Difficulty of Paying Living Expenses 3 08/31/2024 Difficulty of Paying Living Expenses Not on file 08/31/2024 Food Insecurity Answer Date Recorded Do you worry your food will run out before you are able to buy more? 1 08/31/2024 Transportation Needs Answer Date Record ed Does lack of transportation keep you from medica l appointments? 1 08/31/2024 Does lack of transportation keep you from work, meetings or getting things that you need? 1 08/31/2024 Housing Stability Answer Date Recorded What is your housing situation today? 1 08/31/2024 Sex and Gender Information Value Date Recorded Sex Assigned at Not on file Gender Identity Not on file Sexual Orientation Not on file Obstetrics History Last Filed Vital Signs Vital Sign Reading Time Taken Comments Blood Pressure 130/60 09/13/2024 3:14 PM CDT Pulse 120 09/13/2024 3:14 PM CDT Temperature 37.1 ??C (98.8 ??F) 09/13/2024 3:14 PM CD T Respiratory Rate 12 09/13/2024 3:14 PM CDT Oxygen Saturation 98% 09/13/2024 3:14 PM CDT Inhaled Oxygen Concentration - - Weight 62.6 kg (138 lb 1.6 oz) 09/13/2024 3:14 P M CDT Height 175.3 cm (5' 9) 09/13/2024 3:14 PM CDT Body Mass Index 20.39 09/13/2024 3:14 PM CDT Plan of Treatment Upcoming Encounters Date Type Department Care Team (Late st Contact Info) Description 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 Office Visit [facility] [address] [phone] Kaushik Jones MD [address] [phone] Health Maintenance Due Date Last Done Comments Tdap 1979 HIV for age 15-65 1983 Tetanus booster 04/14/2005 04/14/1995 Colonoscopy through age 75 2013 Lipids for age 45-75 2013 Mammogram for age 45-75 2013 Zoster (shingles) series for age 50+ (1 of 2) 2018 Depression screening for age 12+ 08/22/2020 08/22/2019, 08/22/2019 Pap test for age 21-65 09/04/2020 7, 09/04/2017, 04/06/2012, Additional history exists COVID-19 vaccine series ( season) 2024 Influenza for age 50-64 07/17/2024 BMI (ht and wt on same day) for age 18+ 09/13/2025 09/13/2024, 08/22/2019 Hepatitis C screening for age 18-79 Completed 08/31/2024 Pneumococcal series for age 6-64 Aged Out No longer eligible based on patient's age to complete this topic Procedures Procedure Name Priority Date/Time Associated Diagnosis Comments XR CHEST 2 VIEWS PA AND LATERAL Routine 09/13/2024 4:13 PM CDT Pleural effusion, right WHITE BLOOD COUNT Today 09/05/2024 11: 50 AM CDT XR CHEST 1 VIEW PORTABLE Timed 09/05/2024 5:05 AM CDT ALT (SGPT) Early AM 09/04/2024 5:45 AM CDT AST (SGOT) Early AM 09/04/2024 5:45 AM CDT CREATININE Early AM 09/04/2024 5:45 AM CDT WHITE BLOOD COUNT Early AM 09/04/2024 5:4 5 AM CDT XR CHEST 1 VIEW PORTABLE Timed 09/04/2024 5:09 AM CDT WHITE BLOOD COUNT Early AM 09/03/2024 7:2 0 AM CDT XR CHEST 1 VIEW PORTABLE Timed 09/03/2024 5:10 AM CDT SCAN CORRESP-EKG RESULTS 09/02/2024 11:49 AM CDT SCAN CORRESP-LABORATORY RESULTS 09/02/2024 11:49 AM CDT SCAN CORRESP-IMAGING 09/02/2024 11:49 AM CDT CREATININE Early AM 09/02/2024 8:07 AM CDT HEMOGLOBIN Early AM 09/02/2024 8:07 AM CDT WHITE BLOOD COUNT Early AM 09/02/2024 8:0 7 AM CDT XR CHEST 1 VIEW PORTABLE Routine 09/02/2024 5:11 AM CDT XR CHEST 1 VIEW PORTABLE STAT 09/01/2024 3:01 PM CDT PATH TISSUE EXAM Today 09/01/2024 12:1 6 PM CDT AFB CULTURE, STAIN Today 09/01/2024 12 :14 PM CDT TISSUE CULTURE, STAIN (AEROBIC) Today 09/01/2024 12:14 PM CDT ANAEROBIC CULTURE Today 09/01/2024 12: 14 PM CDT AFB CULTURE, STAIN Today 09/01/2024 12 :08 PM CDT BODY FLUID CULTURE,STAIN (AEROBIC) Today 09/01/2024 12:08 PM CDT ANAEROBIC CULTURE Today 09/01/2024 12: 08 PM CDT ENDOTRACHEAL TUBE Routine 09/01/2024 12: 04 PM CDT ARTERIAL LINE Routine 09/01/2024 11:47 AM CDT ARTERIAL LINE Routine 09/01/2024 11:47 AM CDT ARTERIAL LINE Routine 09/01/2024 11:47 AM CDT ARTERIAL LINE Routine 09/01/2024 11:47 AM CDT ARTERIAL LINE Routine 09/01/2024 11:47 AM CDT ARTERIAL LINE Routine 09/01/2024 11:47 AM CDT ARTERIAL LINE Routine 09/01/2024 11:47 AM CDT GAS CHARGER BLOOD TYPE STAT 09/01/2024 11:08 AM CDT THORASCOPIC DECORTICATION Class D Urgent 09/01/2024 10:56 AM CDT RIGHT PLEURAL EFFUSION, EMPYEMA Special Needs WT N/A BRONCHOSCOPY Class D Urgent 09/01/2024 10:56 AM CDT RIGHT PLEURAL EFFUSION, EMPYEMA Special Needs WT N/A GAS CHARGER QUESTION TEST STAT 09/01/2024 10:44 AM CDT TYPE & SCREEN Preop 09/01/2024 10:44 AM CDT OR IMAGE CAPTURE Routine 09/01/2024 10:3 9 AM CDT SODIUM Early AM 09/01/2024 6:50 AM CDT POTASSIUM Early AM 09/01/2024 6:50 AM CDT CREATININE Early AM 09/01/2024 6:50 AM CDT WHITE BLOOD COUNT Early AM 09/01/2024 6:5 0 AM CDT ALT (SGPT) Early AM 09/01/2024 6:50 AM CDT AST (SGOT) Early AM 09/01/2024 6:50 AM CDT XR CHEST 1 VIEW PORTABLE Timed 09/01/2024 5:08 AM CDT PATH NON NETWORK PROFESSIONAL CYTOLOGY Today 08/31/2024 5:00 PM CDT XR CHEST 1 VIEW PORTABLE BETSY 08/31/2024 3:[address] CHEST TUBE PLACEMENT RIGHT Routine 08/31/2024 3:09 PM CDT PH,BODY FLUID Today 08/31/2024 2:38 PM CDT LD,BODY FLUID Today 08/31/2024 2:38 PM CDT PROTEIN,BODY FLUID Today 08/31/2024 2: 38 PM CDT GLUCOSE,BODY FLUID Today 08/31/2024 2: 38 PM CDT ANAEROBIC CULTURE Today 08/31/2024 2:3 8 PM CDT BODY FLUID CULTURE,STAIN (AEROBIC) Today 08/31/2024 2:38 PM CDT BODY FLUID CELL COUNT/DIF Today 08/31/2024 2:38 PM CDT US ABDOMEN LIMITED Routine 08/31/2024 8: 57 AM CDT XR CHEST 1 VIEW PORTABLE Routine 08/31/2024 8:02 AM CDT ACUTE HEPATITIS PANEL BETSY 08/31/2024 1:29 AM CDT C-REACTIVE PROTEIN Timed 08/31/2024 1: 29 AM CDT PROTIME-INR Today 08/31/2024 1:29 AM CDT HEPATIC FUNCTION PANEL Today 08/31/2024 1:29 AM CDT CBC W PLT NO DIFF Today 08/31/2024 1:2 9 AM CDT BASIC METABOLIC PANEL Timed 08/31/2024 1:29 AM CDT SCAN-CARDIAC STRIP 08/31/2024 12 :00 AM CDT LAB TRACKING EVENT Routine 08/30/2024 2: 53 PM CDT PATH NON NETWORK PROFESSIONAL CYTOLOGY Routine 08/30/2024 2:53 PM CDT NETWORK PROFESSIONAL THIN PREP PAP SCREEN IMAGED Routine 09/04/2017 1:00 PM CDT from Last 3 Months or Most Recently Relevant to Health Maintenance Results * XR CHEST 2 VIEWS PA AND LATERAL (09/13/2024 4:13 PM CDT) Anatomical Region Laterality Modality CHEST, THORAX, Lung, HEART Digit al Radiography 09/13/2024 4:20 PM CDT Impressions 09/13/2024 4:20 PM CDT 1. Interval right chest tube removal without evidence of pneumothorax. 2. Right sided pleural scarring and moderate right-sided volume loss. Tiny right pleural effusion possible. Dictated by Omar Owen MD @ Sep 13 2024 ??4:20PM (Electronically Signed) [email or web address] Narrative 09/13/2024 4:20 PM CDT For Patients: ??As a result of the Cures Act, medical imaging exams and procedure reports are released immediately into your electronic medical record. ??You may view this report before your referring provider. ??If you have questions, please contact your health care provider. INDICATION: Right pleural effusion TECHNIQUE: PA and lateral COMPARISON: 09/05/2024 FINDINGS: Interval right chest tube removal. No pneumothorax. Right pleural scarring and moderate right-sided volume loss. Possible tiny right pleural effusion. Left lung and pleural space clear. Heart size and pulmonary vasculature within normal limits. No significant osseous abnormality. Procedure Note Omar Owen MD - 09/13/2024 For Patients: As a result of the Cures Act, medical imagingexams and procedure reports are released immediately into your electronicmedical record. You may view this report before your referring provider.If you have questions, please contact your health care provider. INDICATION: Right pleural effusion TECHNIQUE: PA and lateral COMPARISON: 09/05/2024 FINDINGS: Interval right chest tube removal. No pneumothorax. Right pleural scarringand moderate right-sided volume loss. Possible tiny right pleuraleffusion. Left lung and pleural space clear. Heart size and pulmonaryvasculature within normal limits. No significant osseous abnormality. IMPRESSION: 1. Interval right chest tube removal without evidence of pneumothorax. 2. Right sided pleural scarring and moderate right-sided volume loss. Tinyright pleural effusion possible. Dictated by Omar Owen MD @ Sep 13 2024 4:20PM (Electronically Signed) [email or web address] * (ABNORMAL) WHITE BLOOD COUNT (09/05/2024 11:50 AM CDT) Only the most recent of5 resultswithin the time period is included. WHITE BLOOD COUNT 16.3(H) 4.5 - 11.0 thou/cu mm 09/05/2024 12:46 PM CDT [facility] NRBC 0.0 % 09/05/2024 12:46 PM CDT [facility] ABS NRBC 0.0 thou /cu mm 09/05/2024 12:46 PM CDT [facility] Blood BLOOD SPECIMEN / Unknown Venipuncture / Unknown 09/05/2024 11:50 AM CDT 09/05/2024 12:31 PM CDT [facility] [address] [place] [id number], [place] * XR CHEST 1 VIEW PORTABLE (09/05/2024 5:05 AM CDT) Only the most recent of8 resultswithin the time period is included. Anatomical Region Laterality Modality HEART, THORAX, CHEST Digital Rad iography 09/05/2024 6:2 1 AM CDT Impressions 09/05/2024 6:21 AM CDT 1. Heart size normal. 2. Right chest tube ending centrally at the right lung base, unchanged in position. 3. Airspace disease in the right midlung and right base small right apical pneumothorax. Small amount of right pleural fluid or pleural thickening. 4. No substantial change given technical differences. Dictated by Aamir Sarabia MD @ Sep 05 2024 ??6:21AM (Electronically Signed) [email or web address] Narrative 09/05/2024 6:21 AM CDT For Patients: ??As a result of the Century Cures Act, medical imaging exams and procedure reports are released immediately into your electronic medical record. ??You may view this report before your referring provider. ??If you have questions, please contact your health care provider. INDICATION: Follow-up chest tube COMPARISON: September 04, 2024 at 04:33 TECHNIQUE: A single view study was obtained as a portable CXROctober 2023 at 04:39 FINDINGS: As discussed below Procedure Note Aamir Sarabia MD - 09/05/2024 For Patients: As a result of the Cures Act, medical imagingexams and procedure reports are released immediately into your electronicmedical record. You may view this report before your referring provider.If you have questions, please contact your health care provider. INDICATION: Follow-up chest tube COMPARISON: September 04, 2024 at 04:33 TECHNIQUE: A single view study was obtained as a portable CXROctober 2023 at04:39 FINDINGS: As discussed below IMPRESSION: 1. Heart size normal. 2. Right chest tube ending centrally at the right lung base, unchanged inposition. 3. Airspace disease in the right midlung and right base small right apicalpneumothorax. Small amount of right pleural fluid or pleural thickening. 4. No substantial change given technical differences. Dictated by Aamir Sarabia MD @ Sep 05 2024 6:21AM (Electronically Signed) [email or web address] Ranulfo Mackay MD GENERAL IMAGING * Creatinine AM (09/04/2024 5:45 AM CDT) Only the most recent of3 resultswithin the time period is included. eGFR >90 >90 mL/min/1.7 3m2 09/04/2024 6:51 AM CDT [facility] Comment:As of 2022, eG FR is calculated by the CKD-EPI creatinine equation without race adjustment. ??eGFR can be influenced by muscle mass, exercise, and diet. ??The reported eGFR is an estimation only and is only applicable if the renal function is stable. CREATININE 0.51 0.50 - 0.90 mg/dL 09/04/2024 6:51 AM CDT [facility] Blood BLOOD SPECIMEN / Unknown Venipuncture / Unknown 09/04/2024 5:45 AM CDT 09/04/2024 6:19 AM CDT Lizzy Goldstein MD CHEMISTRY [facility] [address] [address], * (ABNORMAL) ALT AM (09/04/2024 5:45 AM CDT) Only the most recent of2 resultswithin the time period is included. ALT (SGPT) 97(H) 10 - 35 IU/L 09/04/2024 6:51 AM CDT [facility] Blood BLOOD SPECIMEN / Unknown Venipuncture / Unknown 09/04/2024 5:45 AM CDT 09/04/2024 6:19 AM CDT Lizzy Goldstein MD CHEMISTRY Performing Organization Address [facility] Phone Number [facility] [address] [address], * (ABNORMAL) AST AM (09/04/2024 5:45 AM CDT) Only the most recent of2 resultswithin the time period is included. AST (SGOT) 49(H) 10 - 35 IU/L 09/04/2024 6:51 AM CDT [facility] Blood BLOOD SPECIMEN / Unknown Venipuncture / Unknown 09/04/2024 5:45 AM CDT 09/04/2024 6:19 AM CDT Lizzy Goldstein MD CHEMISTRY Performing Organization Address [facility] Phone Number [facility] [address] [place] [address], [place] * SCAN CORRESP-LABORATORY RESULTS (09/02/2024 11:49 AM CDT) Narrative 09/02/2024 11:49 AM CDT Ordered by an unspecified provider. Other Clinical Staff OTHER * SCAN CORRESP-EKG RESULTS (09/02/2024 11:49 AM CDT) Narrative 09/02/2024 11:49 AM CDT Ordered by an unspecified provider. Other Clinical Staff OTHER * SCAN CORRESP-IMAGING (09/02/2024 11:49 AM CDT) Anatomical Region Laterality Modality Other Narrative 09/02/2024 11:49 AM CDT Ordered by an unspecified provider. Other Clinical Staff OTHER * (ABNORMAL) Hemoglobin AM (09/02/2024 8:07 AM CDT) Pathologist [facility] HEMOGLOBIN 9.9(L) 12.0 - 16.0 g/dL 09/02/2024 8:51 AM CDT [facility] MCV 89 80 - 100 fL 09/02/2024 8:51 AM CDT [facility] Blood BLOOD SPECIMEN / Unknown Non-Lab Venipuncture / Unknown 09/02/2024 8:07 AM CDT 09/02/2024 8:43 AM CDT Lizzy Goldstein MD HEMATOLOG Y Performing Organization Address City/State/[facility] Co de Phone Number [facility] [address] [place] [address], * PATH TISSUE EXAM (09/01/2024 12:16 PM CDT) Pathologist [facility] Case Report Pathology Report ?Case: [id number] ? Authorizing Provider: ??Ranulfo Mackay MD ??Collected: ? 09/01/2024 1216 ? Ordering Location: ? [facility] ?Received: ?09/01/2024 1220 ? Hospital ? Pathologist: ? Momo Roman MD ? Specimen: ?Right Pleural, right pleural rind- pathology routine ? 09/02/2024 10:36 AM [facility] [employer] Final Diagnosis A) RIGHT PLEURAL RIND, EXCISION: 1. Fibrinous exudate with marked acute inflammation 2. Negative for neoplasia / malignancy 09/02/2024 10:36 AM [facility] [employer] [facility] Comment Findings are those of an acute fibrinous pleuritis / empyema. 09/02/2024 10:36 AM [facility] [employer] [facility] Clinical Information Procedure(s) findings: Residual small multiloculated pockets of pleural effusion with partially trapped lung. Visceral pleural peel surrounding portions of the right upper, middle and lower lobes. Complete decortication was performed with excellent re-expansion of all lobes of the right lung. 09/02/2024 10:36 AM [facility] [employer] Gross Description A) Received fresh labeled with the patient's name and right pleural rind, is a 3.2 x 1.6 x 0.3 cm aggregate of de anda-white soft tissue fragments. ??No lesions are grossly identified. ??Museum Archivist sections are submitted in 1 cassette. [facility] 09/01/2024 09/02/2024 10:36 AM [facility] [employer] [facility] ENTRAL LABORATORY Microscopic Description The final diagnosis is based on microscopic examination of appropriate sections of all specimens. 09/02/2024 10:36 AM CDT [facility] Additional Information Interpreted at [facility] - [address], [place] [address] 09/02/2024 10:36 AM CDT [facility] Tissue (Right Pleural) 09/01/2024 12:16 PM CDT 09/01/2024 12:20 PM CDT Ranulfo Mackay MD PATHOLOGY/CYTOLO GY Performing Organization Address [facility] Co de Phone Number [facility] [address], [place] [address], * TISSUE CULTURE, STAIN (AEROBIC) (09/01/2024 12:14 PM CDT) CULTURE No Growth. 09/06/2024 10:57 AM CDT [facility] GRAM STAIN 2+ PMNs 09/06/2024 10:57 AM CDT [facility] GRAM STAIN No RBCs 09/06/2024 10:57 AM CDT [facility] GRAM STAIN No Epithelial cells 09/06/2024 10:57 AM CDT [facility] GRAM STAIN No organisms seen 09/06/2024 10:57 AM CDT [facility] Tissue (Right Pleural) Non-Blood / Unknown 09/01/2024 12:14 PM CDT 09/01/2024 12:54 PM CDT Ranulfo Mackay MD MICROBIOLOGY Performing Organization Address [facility] Co de Phone Number [facility] [address] [place], [place] [id number], * ANAEROBIC CULTURE (09/01/2024 12:14 PM CDT) Only the most recent of3 resultswithin the time period is included. CULTURE No anaerobes isolated 09/08/2024 11:39 AM CDT [facility] Tissue (Right Pleural) Non-Blood / Unknown 09/01/2024 12:14 PM CDT 09/01/2024 12:54 PM CDT Ranulfo Mackay MD MICROBIOLOGY Performing Organization Address [facility] Co de Phone Number [facility] [address] [place] [address], * BODY FLUID CULTURE,STAIN (AEROBIC) (09/01/2024 12:08 PM CDT) Only the most recent of2 resultswithin the time period is included. CULTURE No Growth. 09/06/2024 11:11 AM CDT [facility] GRAM STAIN 2+ PMNs 09/06/2024 11:11 AM CDT [facility] GRAM STAIN No RBCs 09/06/2024 11:11 AM CDT [facility] GRAM STAIN No Epithelial cells 09/06/2024 11:11 AM CDT [facility] LABORATORY GRAM STAIN No organisms seen 09/06/2024 11:11 AM CDT [facility] TRAL LABORAT[facility] Body Fluid (Right Pleural Fluid) Non-Blood / Unknown 09/01/2024 12:08 PM CDT 09/01/2024 12:37 PM CDT Narrative [facility] LABOR[facility] - 09/06/2024 11:11 AM CDT Ranulfo Mackay MD MICROBIOLOGY Performing Organization Address [facility] Co de Phone Number [facility] LABORATORY [address] [place] [address], * ETT (09/01/2024 12:04 PM CDT) Narrative Nicol Marcano CRNA Student - 09/01/2024 12:04 PM CDT Nicol Marcano CRNA Student ? 09/01/2024 12:06 PM Procedure: ETT Patient location during procedure: OR ETT Properties Mask Ventilation: easy Final Technique: direct laryngoscopy Type: ETT - double lumen left Location: oral Cuffed: yes Stylet: yes Laryngoscope Blade: Mac Blade Size: 3 Cormack-Lehane Grade View: 2 Insertion Attempts: 1 Placement Verification: auscultation, end tidal CO2 and symmetrical chest wall movement Assessment: pharynx clear, atraumatic and dentition unchanged Secured at: other (comment) (per fiberoptic verification) Difficulty: 0 (not difficult) Tube Size: 37 Fr Thuy Roth MD ANESTHESIA PX NOTE ORDERABLES * HCHG CATH PR5, HCHG TUBING PR1, HCHG TUBING PR20, HCHG DRSG PR1, HCHG DRSG PR5, HCHG STATLOCK PR1, HCHG KIT PR5 (09/01/2024 11:47 AM CDT) Narrative Thuy Roth MD - 09/01/2024 11:47 AM CDT Thuy Roth MD ? 09/01/2024 11:47 AM Arterial Line Patient location during procedure: OR Start time: 09/01/2024 11:34 AM End time: 09/01/2024 11:35 AM Indications: lab sampling and monitoring Staffing Preanesthetic Checklist Completed: patient identified, risks and benefits discussed, consent obtained and timeout performed Arterial Line Patient position: supine. ??Comment:. Laterality: left Site: radial Ultrasound guidance: sterile gel and probe cover used in ultrasound-guided central venous catheter insertion. Securement/dressing: Biopatch applied, dressing applied, STATLOCK stabilization placed. ??Comment: Vessel Instructional Facilitator Additional supplies used to locate vessel: no Needle Catheter size: 20 G. ??Comment:. Catheter length: 4.5 cm. ??Comment: Events: no complications. Thuy Roth MD ANESTHESIA PX NOTE ORDERABLES * GAS CHARGER BLOOD TYPE (09/01/2024 11:08 AM CDT) Pathologist [facility] ABORH A Rh Negative 09/01/2024 11:48 AM CDT [facility] Blood BLOOD SPECIMEN / Unknown Butterfly / Unknown 09/01/2024 11:08 AM CDT 09/01/2024 11:18 AM CDT Thalia MONROE BLOOD BANK [facility]TRAL LAB BLOOD BANK [address] [place] [id number], * GAS CHARGER QUESTION TEST (09/01/2024 10:44 AM CDT) QABT Question Yes 09/01/2024 10:54 AM CDT [facility] LAB-CENTRAL LAB BLOOD BANK Blood BLOOD SPECIMEN / Unknown Butterfly / Unknown 09/01/2024 10:44 AM CDT 09/01/2024 10:52 AM CDT Thalia MONROE BLOOD BANK Performing Organization Address City/[facility]/ZIP Co de Phone Number [facility] [address] [place] [phone], * Type and Screen (09/01/2024 10:44 AM CDT) ABORH A Rh Negative 09/01/2024 11:30 AM CDT [facility] L[facility]AL LAB BLOOD BANK ANTIBODY SCREEN Negative Negative 09/01/2024 11:30 AM CDT [facility] SPECIMEN EXPIRATION DATE/TIME 09/04/24 23:59 09/01/2024 11:30 AM CDT [facility] Blood BLOOD SPECIMEN / Unknown Butterfly / Unknown 09/01/2024 10:44 AM CDT 09/01/2024 10:52 AM CDT Thalia MONROE BLOOD BANK [facility] LAB-CENTRAL LAB BLOOD BANK [address] [place] [id number], * Sodium AM (09/01/2024 6:50 AM CDT) SODIUM 137 136 - 145 mmol/L 09/01/2024 7:48 AM CDT [facility] Blood BLOOD SPECIMEN / Unknown Butterfly / Unknown 09/01/2024 6:50 AM CDT 09/01/2024 7:09 AM CDT Lizzy Goldstein MD CHEMISTRY Performing Organization Address City/[facility]/ZIP Co de Phone Number [facility] LABORATORY [address] [place] [address], * Potassium AM (09/01/2024 6:50 AM CDT) Pathologist [facility] POTASSIUM 4.3 3.5 - 5.1 mmol/L 09/01/2024 7:48 AM CDT [facility] LABORAT[facility] Blood BLOOD SPECIMEN / Unknown Butterfly / Unknown 09/01/2024 6:50 AM CDT 09/01/2024 7:09 AM CDT Lizzy Goldstein MD CHEMISTRY Performing Organization Address [facility] de Phone Number [facility] LABORATORY [address] [place] [address], * PATH Non Citrus [employer]acker Cytology (08/31/2024 5:00 PM CDT) Only the most recent of2 resultswithin the time period is included. Pathologist [facility] Case Report Medical Cytology Report ? Case: [id number] ? Authorizing Provider: ??Thalia Matt PA ??Collected: ? 08/31/2024 1700 ? Ordering Location: ? [facility] ?Received: ?08/31/2024 145 ? Hospital ? Pathologist: ? Juliana Chu MD ? Specimen: ?Right Pleural Fluid ? 09/02/2024 10:04 AM [facility] [employer] LABORATORY-C ENTRAL LABORATORY Final Diagnosis A) RIGHT PLEURAL FLUID FOR CYTOLOGY: 1. Marked acute inflammation present 2. Negative for malignancy 09/02/2024 10:04 AM [facility] [employer] [facility]-C ENTRAL LABORATORY Clinical Information Ms. Raysa Stanley is a pleasant 53 year old female with no significant past medical history who presented to [place] [facility] yesterday with one week of pleuritic chest pain and cough. Associated symptoms included fatigue and fevers. Prior to a week ago, she was overall feeling well. She initially thought her symptoms were related to inflammation. She does acknowledge history of reflux. Her symptoms persisted so went in for further evaluation. In the ER, vital signs stable. CT chest showed large loculated right pleural effusion. Thoracentesis was attempted, but noted unable to drain effusion completely given loculations. She was started on antibiotics and transferred to [place] for higher level of care. 09/02/2024 10:04 AM [facility] [employer] LABORATORY-C ENTRAL LABORATORY Gross Description A) SOURCE: Pleural fluid, right The specimen consists of 5 cc of light gold hazy fluid from which the following is prepared: ? -1 DiffQuik stained slide ? -1 Papanicolaou stained ThinPrep slide ? -1 H&E stained cell block slide A2 Cell block material was placed in formalin at 1800 on 08/31/24 and fixed in formalin at least 6 hours and no more than 72 hours. 09/02/2024 10:04 AM CDT [facility] LABORATORY- ENTRAL LABORATORY Microscopic Description Specimen adequacy: Adequate for interpretation. All slides were reviewed. The microscopic appearance substantiates the diagnosis. 09/02/2024 10:04 AM CDT [facility]- ENTRAL LABORATORY Additional Information Cytology is screened at [facility] - [address], [place] [address] and [facility] - [address], [place] [address] and [facility] - [address] [place] [address] Interpreted at [facility] - [address], [place] [address] 09/02/2024 10:04 AM CDT [facility] ENTRAL LABORATORY Other (Right Pleural Fluid) 08/31/2024 5:00 PM CDT 08/31/2024 2:51 PM CDT Thalia MONROE PATHOLOGY/CYTOLO GY Performing Organization Address City/State/[facility] Co de Phone Number [facility] [address] [place] [address], * CT CHEST TUBE PLACEMENT RIGHT (08/31/2024 3:09 PM CDT) Anatomical Region Laterality Modality Computed Tomogra phy Narrative 09/01/2024 11:15 AM CDT RADIOLOGY POST PROCEDURE NOTE ?? 08/31/2024 Raysa Stanley [id number] INFORMEDCONSENT: In my discussion, prior to the signing of the consent, I reviewed the procedure, benefits, risks, long-term effects, treatment options, possible use of pain or sedation medications, and how the procedure will meet the treatment goal with the patient and/or family. The patient was given ample time to ask questions. All questions were answered. INDICATIONS: Right pleural effusion PROCEDURE PERFORMED: Placement of 12 Djiboutian chest tube in the right pleural space PROCEDURE NARRATIVE : Axial cuts through the chest were performed in the supine position. ??Under CT guidance 5 Djiboutian Yueh catheter was introduced from the right side into the pleural space. ??The catheter was then exchanged over a wire with sequential dilators up to 12 Djiboutian size. ??A 20 cc sample was collected and sent for laboratory evaluation. ??The fluid is thick and cloudy. ??At least 200 cc was aspirated after connecting the catheter to pleural VAC system. ??Postprocedure CT was performed confirming catheter in good position. ??Catheter was secured with sutures. ??Patient tolerated procedure well. PATIENT POSITION: supine ANTISEPTIC PREPARATION and BARRIER TECHNIQUES USED: ??Skin was prepped and draped in the usual sterile fashion. IMAGING GUIDANCE FOR ACCESS / PROCEDURE: ??CT ?Permanently recorded images are archived in PACS. ACCESS LOCATION / SITE / TECHNIQUE: Right lateral approach EQUIPMENT UTILIZED: 12 Djiboutian multipurpose catheter. CLOSURE: ??none RADIATION DOSE: ?? total exam DLP: 232 mGy-cm MEDICATIONS GIVEN: ?? 1% Lidocaine was used for local anesthesia. SPECIMEN(S): 20 cc sample sent for laboratory evaluation. COMPLICATIONS: no complications noted DRAINS: ??Chest tube . ESTIMATED BLOOD LOSS: None. PHYSICIAN(S) AND ASSISTANTS (if any): ??Raul Caal MD Additional Comments: Please call with questions. Raul Caal MD Embudo Protocol A. Pre-procedure verification complete yes 1-relevant information / documentation available, reviewed and properly matched to the patient; 2-consent accurate and complete, 3-equipment and supplies available B. Site marking complete Yes Site marked if not in continuous attendance with patient C. TIME OUT completed yes Time Out was conducted just prior to starting procedure to verify the eight required elements: 1-patient identity, 2-consent accurate and complete, 3-position, 4-correct side/site marked (if applicable), 5-procedure, 6-relevant images / results properly labeled and displayed (if applicable), 7-antibiotics / irrigation fluids (if applicable), 8-safety precautions. Please note that all CT scans at this facility use dose modulation, iterative reconstruction, and/or weight-based dosing when appropriate to reduce radiation dose to as low as reasonably achievable. Thalia MONROE CT * Body Fluid Cell Count and Differential (08/31/2024 2:38 PM CDT) BODY FLUID SOURCE Pleural Fluid 08/31/2024 8:56 PM CDT [facility] TRA LABORATORY Comment:Right BODY FLUID COLOR Yellow 08/31/2024 8:56 PM CDT [facility] TRAL LABORATORY BODY FLUID CLARITY Cloudy 08/31/2024 8:56 PM CDT [facility] TOTAL NUCLEATED CELLS, BF 15,608 /cu mm 08/31/2024 8:56 PM CDT [facility] RED BLOOD COUNT, BODY FLUID 4,000 /cu mm 08/31/2024 8:56 PM CDT [facility] LABORAT[facility] % NEUTROPHILS, BODY FLUID 99 % 08/31/2024 8:56 PM CDT [facility] % MONO/MACRO, BODY FLUID 1 % 08/31/2024 8:56 PM CDT [facility] LABORAT[facility] Body Fluid PLEURAL FLUID SPECIMEN / Unknown Non-Blood / Unknown 08/31/2024 2:38 PM CDT 08/31/2024 3:34 PM CDT Thalia MONROE BODY FLUID [facility] LABOR[facility] [address] [place] [address], * Protein, Body Fluid (08/31/2024 2:38 PM CDT) SPECIMEN SOURCE Right Pleural 08/31/2024 5:30 PM CDT [facility] LAB[facility] PROTEIN,BODY FLUID 4.3 g/dL 08/31/2024 5:30 PM CDT [facility] TR[facility] LABORAT[facility] Comment:No Reference Range D efined. Body Fluid PLEURAL FLUID SPECIMEN / Unknown Non-Blood / Unknown 08/31/2024 2:38 PM CDT 08/31/2024 3:34 PM CDT Narrative [facility] LABOR[facility] - 08/31/2024 5:30 PM CDT Pleural: Pleural fluid transudate total protein to serum total protein ratio typically </=0.5. Pleural fluid exudate total protein to serum total protein ratio typically >0.5. Peritoneal: Ascitic fluid total protein is a reflection of serum protein concentration. May be useful in differentiating secondary bacterial peritonitis from spontaneous bacterial peritonitis when at least two of the three criteria are met in ascetic fluid: Total Protein > 1.0 g/dL Glucose < 50 mg/dL LDH > Upper reference limit for serum Ascitic fluid total protein may be elevated > 2.5 g/dL in patients with high albumin gradient ascites caused by heart failure. Test developed & performance characteristics determined by [facility], [place], [place] consistent with CLIA requirements. Not cleared or approved by [place] FDA. Thalia MONROE BODY FLUID Performing Organization Address City/[facility]/ZIP Co de Phone Number [facility] LABORATORY [address] [place] [id number], [place] * pH Body Fluid (08/31/2024 2:38 PM CDT) PH,BODY FLUID <6.80 08/31/2024 7:58 PM CDT [facility] [employer] [facility] TRAL LABORATORY Specimen Source Pleural 08/31/2024 7:58 PM CDT [facility] [employer] [facility] TRAL LABORATORY Body Fluid PLEURAL FLUID SPECIMEN / Unknown Non-Blood / Unknown 08/31/2024 2:38 PM CDT 08/31/2024 3:34 PM CDT [facility] LABORATORY - 08/31/2024 7:58 PM CDT Interpret results with caution, older specimen received Thalia MONROE BODY FLUID [facility] [address] [place] [id number], [place] * LD, Body Fluid (08/31/2024 2:38 PM CDT) SPECIMEN SOURCE Right Pleural 08/31/2024 6:12 PM CDT [facility] LD,BODY FLUID >10,000 IU/L 08/31/2024 6:12 PM CDT [facility] Body Fluid PLEURAL FLUID SPECIMEN / Unknown Non-Blood / Unknown 08/31/2024 2:38 PM CDT 08/31/2024 3:34 PM CDT Narrative [facility] LABOR[facility] - 08/31/2024 6:12 PM CDT Pleural: ? Pleural fluid LDH to serum LDH ratio <= 0.6 or less than 2/3 the ?upper limit of normal serum LDH consistent with transudative ?effusions, while pleural fluid LDH to serum LDH ratio > 0.6 is ?consistent with exudative effusions. Peritoneal: ??Ascitic fluid LDH may be useful in differentiating secondary ?bacterial peritonitis from spontaneous bacterial peritonitis when ?at least two of the three criteria are met in ascites Fluid: ? Total protein >1.0 g/dL ? Glucose <50 mg/dL ? LDH > upper reference limit for serum Test developed & performance characteristics determined by [facility], [place], [place] consistent with CLIA requirements. Not cleared or approved by [place] FDA. Thalia MONROE BODY FLUID [facility] LABORAT[facility] [address] [place] [address], * Glucose, Body Fluids (08/31/2024 2:38 PM CDT) SPECIMEN SOURCE Right Pleural 08/31/2024 5:30 PM CDT [facility] TRAL LABORATORY GLUCOSE,BODY FLUID <2 mg/dL 08/31/2024 5:30 PM CDT [facility] Comment:No Reference Range D efined. Body Fluid PLEURAL FLUID SPECIMEN / Unknown Non-Blood / Unknown 08/31/2024 2:38 PM CDT 08/31/2024 3:34 PM CDT Narrative [facility] LABORAT[facility] - 08/31/2024 5:30 PM CDT Pleural: Transudative pleural fluid glucose concentrations similar to serum glucose concentrations, while exudates have glucose concentrations less than serum glucose Glucose <60 mg/dL typically associated with low fluid pH Pericardial: Pericardial fluid glucose to serum glucose ratio <1.0 may be useful in differentiating exudate from transudate and infective from parainfective effusions Test developed & performance characteristics determined by [facility], [place], [place] consistent with CLIA requirements. Not cleared or approved by [place] FDA. Thalia MONROE BODY FLUID [facility] [address] [place] [address], [place] * RUQ ultrasound today (08/31/2024 8:57 AM CDT) Anatomical Region Laterality Modality Abdomen, LIVER, KIDNEYS, PANCREAS, GALLBLADDER, SPLEEN Ultrasound 08/31/2024 9:48 AM CDT Impressions 08/31/2024 9:48 AM CDT 1. Mild likely hepatic steatosis without focal abnormality. Minimal gallbladder sludge. 2. Moderate right basilar pleural effusion. Dictated by Christian Hewitt MD @ 08/31/2024 9:48:05 AM (Electronically Signed) Narrative 08/31/2024 9:48 AM CDT For Patients: ??As a result of the Century Cures Act, medical imaging exams and procedure reports are released immediately into your electronic medical record. ??You may view this report before your referring provider. ??If you have questions, please contact your health care provider. INDICATION: Transaminitis TECHNIQUE: Ultrasound abdomen limited. ??Sonographic images of the right upper quadrant were obtained using mckenna-scale and color Doppler images. COMPARISON: None FINDINGS: Liver: Mildly increased in echogenicity. No masses. ??No intrahepatic biliary dilatation. ?? Gallbladder: The gallbladder demonstrates minimal gallbladder sludge with questionable non dependent polyp. Common bile duct: 3 mm. ?? Pancreas: Normal. ?? Right kidney: Normal in size. ??Normal echotexture and cortex. ??No masses, stones, or hydronephrosis. ?? Vasculature: Proximal abdominal aorta and IVC are normal. ?? Partial visualization of a right basilar pleural effusion. Procedure Note Christian Hewitt MD - 08/31/2024 For Patients: As a result of the Cures Act, medical imagingexams and procedure reports are released immediately into your electronicmedical record. You may view this report before your referring provider.If you have questions, please contact your health care provider. INDICATION: Transaminitis TECHNIQUE: Ultrasound abdomen limited. Sonographic images of the right upperquadrant were obtained using mckenna-scale and color Doppler images. COMPARISON: None FINDINGS: Liver: Mildly increased in echogenicity. No masses. No intrahepaticbiliary dilatation. Gallbladder: The gallbladder demonstrates minimal gallbladder sludge withquestionable non dependent polyp. Common bile duct: 3 mm. Pancreas: Normal. Right kidney: Normal in size. Normal echotexture and cortex. No masses,stones, or hydronephrosis. Vasculature: Proximal abdominal aorta and IVC are normal. Partial visualization of a right basilar pleural effusion. IMPRESSION: 1. Mild likely hepatic steatosis without focal abnormality. Minimalgallbladder sludge. 2. Moderate right basilar pleural effusion. Dictated by Christian Hewitt MD @ 08/31/2024 9:48:05 AM (Electronically Signed) Jesus Donald MD [place] * (ABNORMAL) CBC no diff TODAY (08/31/2024 1:29 AM CDT) WHITE BLOOD COUNT 23.0(H) 4.5 - 11.0 thou/cu mm 08/31/2024 1:40 AM CDT [facility] LABORATORY-[facility] TRAL LABORATORY RED BLOOD COUNT 3.81(L) 4.00 - 5.20 mil/cu mm 08/31/2024 1:40 AM CDT [facility] LABORATORY-[facility] TRAL LABORATORY HEMOGLOBIN 11.1(L) 12.0 - 16.0 g/dL 08/31/2024 1:40 AM CDT [facility] TRAL LABORATORY HEMATOCRIT 32.8(L) 33.0 - 51.0 % 08/31/2024 1:40 AM CDT [facility] LABORATORY-[facility] TRAL LABORATORY MCV 86 80 - 100 fL 08/31/2024 1:40 AM CDT [facility] LABOR[facility] MCH 29.1 26.0 - 34.0 pg 08/31/2024 1:40 AM CDT [facility] LAB[facility]AT[facility] MCHC 33.8 32.0 - 36.0 g/dL 08/31/2024 1:40 AM CDT [facility] LAB[facility] RDW 14.6 11.5 - 15.5 % 08/31/2024 1:40 AM CDT [facility] PLATELET COUNT 447(H) 140 - 440 thou/cu mm 08/31/2024 1:40 AM CDT [facility] MPV 9.7 6.5 - 11.0 fL 08/31/2024 1:40 AM CDT [facility] LAB[facility] NRBC 0.0 % 08/31/2024 1:40 AM CDT [facility] LAB[facility] ABS NRBC 0.0 thou /cu mm 08/31/2024 1:40 AM CDT [facility] Blood BLOOD SPECIMEN / Unknown Venipuncture / Unknown 08/31/2024 1:29 AM CDT 08/31/2024 1:34 AM CDT Jesus Donald MD HEMATOLOGY Performing Organization Address City/[facility]/ZIP Co de Phone Number [facility] LAB[facility] [address] [address], [place] * (ABNORMAL) C-REACTIVE PROTEIN (08/31/2024 1:29 AM CDT) [facility] C-REACTIVE PROTEIN 34.6(H) <0.5 mg/dL 08/31/2024 1:56 AM CDT [facility] Blood BLOOD SPECIMEN / Unknown Venipuncture / Unknown 08/31/2024 1:29 AM CDT 08/31/2024 1:33 AM CDT Jesus Donald MD CHEMISTRY [facility] LAB[facility] [address] [address], * (ABNORMAL) INR TODAY (08/31/2024 1:29 AM CDT) [facility] INR 1.2 <1.3 08/31/2024 1:49 AM CDT [facility] PROTIME 13.6(H) 10.6 - 12.4 sec 08/31/2024 1:49 AM CDT [facility] Blood BLOOD SPECIMEN / Unknown Venipuncture / Unknown 08/31/2024 1:29 AM CDT 08/31/2024 1:34 AM CDT [facility] LABORATORY - 08/31/2024 1:49 AM CDT ?Therapeutic Range 2.0-3.0 for most anticoagulated patients 2.5-3.5 or 4.0 for high risk patients The INR is only used for patients on stable oral anticoagulant therapy. It makes no significant contribution to the diagnosis or treatment of patients whose Protime is prolonged for other reasons. INR results are increased when heparin levels exceed 1.0 U/mL, which corresponds to an aPTT >125 seconds if the patient is on UFH. Jesus Donald MD HEMATOLOGY [facility] LAB[facility] [address] [address], * (ABNORMAL) Hepatic function panel TODAY (08/31/2024 1:29 AM CDT) [facility] ALBUMIN 3.1(L) 4.0 - 4.9 g/dL 08/31/2024 1:56 AM CDT [facility] LABORATORY PROTEIN,TOTAL 6.1 6.0 - 8.0 g/dL 08/31/2024 1:56 AM CDT [facility] BILIRUBIN,TOTAL 0.5 0.0 - 1.2 mg/dL 08/31/2024 1:56 AM CDT [facility] BILIRUBIN,DIRECT 0.3(H) 0.0 - 0.2 mg/dL 08/31/2024 1:56 AM CDT [facility] LABORATORY BILIRUBIN,INDIRE CT 0.2 0.2 - 0.8 mg/dL 08/31/2024 1:56 AM CDT [facility] LAB[facility] ALK PHOSPHATASE 136(H) 35 - 104 IU/L 08/31/2024 1:56 AM CDT [facility] LAB[facility] ALT (SGPT) 145(H) 10 - 35 IU/L 08/31/2024 1:56 AM CDT [facility] AST (SGOT) 135(H) 10 - 35 IU/L 08/31/2024 1:56 AM CDT [facility] Blood BLOOD SPECIMEN / Unknown Venipuncture / Unknown 08/31/2024 1:29 AM CDT 08/31/2024 1:33 AM CDT Jesus Donald MD CHEMISTRY [facility] [address] [place] [address], * Acute hepatitis panel TODAY (08/31/2024 1:29 AM CDT) HEPATITIS C ANTIBODY Non-Reactive Non-Reactive 08/31/2024 4:54 AM CDT [facility] EN[facility]AL LABORATORY Comment:Please note, per www .CDC.gov: If a patient is known to be at high risk of HCV infection, or is symptomatic, and the physician's suspicion of HCV infection is high, HCV RNA testing is often employed and is of diagnostic value, even after an initial negative anti-HCV test result. IGM ANTI HAV Non-Reactive Non-Reactive 08/31/20 4:54 AM CDT [facility] LAB[facility] Comment:Anti-HAV IgM non-gunner ctive. Does not exclude the possibility of exposure to/or infection with HAV. Level of anti-HAV IgM may be below the cut-off in early infection. HBSAG Nonreactive Nonreactive 08/31/2024 4:54 AM CDT [facility] EN[facility] LABORATORY IGM ANTI HBC Non-Reactive Non-Reactive 08/31/20 4:54 AM CDT [facility] Comment:Anti-HBc IgM not det ected. Does not exclude the possibility of exposure to or infection with HBV. Blood BLOOD SPECIMEN / Unknown Venipuncture / Unknown 08/31/2024 1:29 AM CDT 08/31/2024 1:33 AM CDT [facility] - 08/31/2024 4:54 AM CDT Biotin supplements may cause clinically significant interference for this test assay. ??If interference is suspected, it is strongly recommended that biotin is discontinued for at least one week prior to retesting. Jesus Donald MD SEND OUTS [facility] [address] [place] [address], * (ABNORMAL) Basic metabolic panel TODAY (08/31/2024 1:29 AM CDT) SODIUM 133(L) 136 - 145 mmol/L 08/31/2024 1:56 AM [facility] POTASSIUM 3.8 3.5 - 5.1 mmol/L 08/31/2024 1:56 AM [facility] CHLORIDE 96(L) 98 - 107 mmol/L 08/31/2024 1:56 AM [facility] CO2,TOTAL 27 22 - 29 mmol/L 08/31/2024 1:56 AM [facility] ANION GAP 10 5 - 18 08/31/2024 1:56 AM [facility] GLUCOSE 110(H) 70 - 99 mg/dL 08/31/2024 1:56 AM [facility] CALCIUM 8.8 8.6 - 10.0 mg/dL 08/31/2024 1:56 AM [facility] BUN 15 6 - 20 mg/dL 08/31/2024 1:56 AM [facility] CREATININE 0.78 0.50 - 0.90 mg/dL 08/31/2024 1:56 AM [facility] BUN/CREAT RATIO 19 10 - 20 1:56 AM CDT [facility] eGFR 90(L) >90 mL/min/1.7 3m2 08/31/2024 1:56 AM CDT [facility] Comment:As of 2022, eG FR is calculated by the CKD-EPI creatinine equation without race adjustment. ??eGFR can be influenced by muscle mass, exercise, and diet. ??The reported eGFR is an estimation only and is only applicable if the renal function is stable. Blood BLOOD SPECIMEN / Unknown Venipuncture / Unknown 08/31/2024 1:29 AM CDT 08/31/2024 1:33 AM CDT Jesus Donald MD CHEMISTRY Performing Organization Address [facility] de Phone Number [facility] [address] * SCAN-CARDIAC STRIP (08/31/2024 12:00 AM CDT) Narrative 08/31/2024 12:00 AM CDT Ordered by an unspecified provider. Other Clinical Staff OTHER * LAB TRACKING EVENT (08/30/2024 2:53 PM CDT) Other (Other) Client Collect / Unknown 08/30/2024 2:53 PM CDT 08/31/2024 10:11 PM CDT Samira Avilez MD LAB BILL ONLY Performing Organization Address [facility] Co de Phone Number [facility] [address] [place] [address], * NETWORK PROFESSIONAL THIN PREP PAP SCREEN IMAGED (09/04/2017 1:00 PM CDT) Case Report Gynecologic Cytology Report ? Case: [id number] ? Authorizing Provider: ??Suppes, Rachel Markie, MD ?Collected: ? 09/04/2017 1300 ? First Screen: ?Yvrose Contreras ?Received: ?09/07/2017 1637 ? Pathologist: ? Miranda Jauregui MD ? Specimen: ?NETWORK PROFESSIONAL ThinPrep Vial Screening, Cervical/Vaginal ? 09/13/2017 2:28 PM CDT [facility] INTERPRETATION/ RESULT NEGATIVE FOR INTRAEPITHELIAL LESION OR MALIGNANCY (NIL) (none) 09/13/2017 2:28 PM [facility]T [facility] R NON-NEOPLASTIC FINDING(S) Reactive cellular changes associated with inflammation/repa ir 09/13/2017 2:28 PM CDT [facility] SPECIMEN ADEQUACY Satisfactory for evaluation Endocervical component present 09/13/2017 2:28 PM CDT [facility] HPV REQUEST HPV and PAP 09/13/2017 2:28 PM CDT [facility] Date of LMP 08/17/2017 09/13/2017 2:28 PM CDT [facility] Last Pap Date 09/13/2017 2:28 PM CDT [facility] Comment:2011 Last Pap Result ASCUS 7 2:28 PM CDT [facility] Comment:hpv negative Abnormal Pap or Troy Bx in last 5 years Yes 09/13/2017 2:28 PM CDT [facility] Additional Information 2009 pap LGSIL, coplo normal 09/13/2017 2:28 PM CDT [facility] Automated Review Successful 09/13/2017 2:28 PM CDT [facility] Comment:Specimen processed s uccessfully by automated flue lining dipper device, [employer] System[employer] ANCILLARY TESTING NETWORK PROFESSIONAL HPV Ordered, Please see separate report 09/13/2017 2:28 PM CDT [facility] Note The pap test is a screening technique, not a diagnostic procedure. ??It is used primarily to screen for squamous cancers and precursor lesions. ??Published studies have shown that it is subject to both false negative and false positive results. ??The pap test should not be used as the sole means to diagnose or exclude pre-malignant and malignant lesions. Interpreted at [facility], [facility], [facility], [facility], [facility], [facility], [facility]) 09/13/2017 2:28 PM CDT [facility] Other (Cervical/Vagina l) 09/04/2017 1:00 PM CDT 09/07/2017 4:37 PM CDT Rachel Hernandez MD PATHOLOGY/CYTOLOGY [facility] [address] [place] [address], [place] from Last 3 Months or Most Recently Relevant to Health Maintenance Advance Directives * Full Code (Latest Code Status on File) Date Activated Date Inactivated Comments 08/31/2024 1:10 AM 09/05/2024 8:11 PM Question Answer Comments Code Status Discussion: Reviewed Preferences Care Teams Scheduling Coordinator Relationship Specialty Start Date End Date Juliette Lara DO [address] [place] [address] PCP - General Family Practice 09/08/24
== END 2024-08-30 23:23 | disposition home or self-care (01) ==
LOC: AMB 09-15 15:23
PROVIDERS: Visit Provider Family Medicine
DX: J90 Pleural effusion, not elsewhere classified (principal); R91.8 Other nonspecific abnormal finding of lung field
CPT/HCPCS: A0425; A0427